=== PATIENT | male | born 1955 | race Caucasian/White ===

== ENCOUNTER → 2019-11-09 06:59 | Outpatient (CLI) | payer BC, SELFPAY ==
--- NOTE | 2019-11-09 07:15 | MRI_ITS ---
STUDY: MRI BRAIN WITH AND WITHOUT CONTRAST REASON FOR EXAM: Male, 63 years old. ms TECHNIQUE: Standardized multiplanar fat and water weighted pulse sequences were obtained. IV Dotarem 17ml was administered for the contrast portion of the examination. COMPARISON: 03/20/2015 FINDINGS: Normal size of the ventricles and extra-axial spaces for the patient''s age. There is no change in the paravertebral or pericallosal the white matter hyperintensities consistent with known demyelinating disease (multiple sclerosis). No contrast-enhancing plaque. There is no evidence for recent intracranial ischemia or other cause of cytotoxic edema on diffusion weighted imaging (DWI). Normal T2* images of the brain without demonstrated susceptibility artifact. There is no demonstrated hemosiderin stain. Normal bilateral basal ganglia. Normal thalami. There is no extra-axial fluid accumulation. Normal flow voids within the major intracranial circulation suggesting patency by spin echo criteria. Normal venous enhancement. There is no enhancing intra-axial or extra-axial abnormality. Normal sella turcica, pituitary gland, infundibular stalk, optic chiasm and hypothalamus. Normal tectal plate and pineal gland. Normal midbrain, divina and medulla. Normal cerebellum. Normal basal cisterns. Normal bilateral temporal bones. Normal bilateral internal auditory canals. No demonstrated orbital abnormality, within the constraints of a routine brain study. Normal visualized paranasal sinuses. Normal calvarium and skull base. Normal visualized soft tissue structures. Normal visualized upper cervical spine. MRI/Brain W/WO Contrast IMPRESSION: No change in known multiple sclerosis. No contrast-enhancing plaque. Electronically Signed: Maksim Cardenas MD at 8:56 EDT Tel , Service support ,
[2019-11-10 09:28] LABS: CREATININE FINGERSTICK 0.97 mg/dL (0.70-1.30); EGFR FINGERSTICK > 60 mL/min (>60)
== END ==
PROVIDERS: PCP Family Medicine; Referring Provider Internal Medicine; Visit Provider Internal Medicine
DX: G35 Multiple sclerosis (principal)
CPT/HCPCS: 70553; A9575

== ENCOUNTER 2019-11-28 19:51 | Emergency (ER) | payer BC, SELFPAY ==
[2019-11-28 19:52] VITALS: BP 140/87; PULSE 74; RESP 16; TEMP 36.6; O2SAT 97; BMI 27.8
--- NOTE | 2019-11-28 20:23 | ED.VIS.GEN ---
History of Present Illness Chief Complaint: Cellulitis Narrative: Patient is a 64-year-old male who presents with redness on his left foot. He had some discomfort and felt like there was a rock in his shoe. He had some discomfort and mild pain on bearing weight. He noticed a small bump. He then today noticed a red line going up his foot. No systemic symptoms. No fevers or vomiting. He is not diabetic. Past Medical History - Allergies and Home Meds Allergies/Adverse Reactions: Allergies Penicillins Allergy (Verified 11/28/19 19:54) PT UNSURE OF REACTION poison azul extract Allergy (Verified 11/28/19 19:54) Rash Primary Care Physician: Hunter Flood MD [Primary Care Provider] - Past Medical History: - - Multiple sclerosis Smoking Status: Former smoker Review of Systems All systems negative except as indicated General: Denies: Fever Cardiovascular: Denies: Chest pain Respiratory: Denies: Dyspnea Gastrointestinal: Denies: Vomiting, Diarrhea Skin: Denies: Rash Neurological: Denies: Headache Physical Exam Vital Signs/Narrative: Vital Signs Temp Pulse Resp BP Pulse Ox 11/28/19 19:52 97.8 F 74 16 140/87 H 97 Inital Vital Signs reviewed: Yes General: Well nourished Head: Normocephalic Eyes: EOMI ENT: Moist mucous membranes Neck: Supple Cardiovascular: Regular rate Respiratory: No distress Skin: - - Patient has a small tender nodule with a tiny pustule on the left lateral foot. There is a tiny central black dot which could potentially be a foreign body. Diagnostic/Tx/Re-eval - Medical Decision Making I did perform [id number] soft tissue ultrasound. No foreign body was visualized. Patient was anesthetized with 1/2 cc of 1% lidocaine without epinephrine. The tiny pustule was incised and drained with an 18-gauge needle. Small amount of purulent material was expressed. No foreign body. Patient will be placed on Keflex and Bactrim. He understands to return for new or worsening symptoms. Patient was discharged. ED Disposition - Plan for ED Patient: Disposition: Home or Assisted Living Diagnosis: Cellulitis and abscess of foot Instructions: ED Abscess Incision And Drainage, ED Cellulitis Prescriptions: Smz/Tmp Ds [Bactrim Ds] 1 tab PO BID #20 tab Prescription Printed Cephalexin [Keflex] 500 mg PO Q6 #40 cap Prescription Printed Referrals: Hunter Flood MD [Primary Care Provider] -
== END 2019-11-28 20:34 | disposition home or self-care (01) ==
LOC: ED 20:28
PROVIDERS: Emergency Provider Emergency Medicine; PCP Family Medicine
DX: L03.116 Cellulitis of left lower limb (principal); L02.612 Cutaneous abscess of left foot; G35 Multiple sclerosis; Z87.891 Personal history of nicotine dependence
CPT/HCPCS: 99282

== ENCOUNTER 2020-06-22 15:06 | Outpatient (RCR) | payer BC, SELFPAY ==
[2020-06-22] MEDS: COVID-19 VACC, MRNA(PFIZER)/PF 30 MCG/0.3 ML SYRINGE IM (08:24)
[2020-07-13] MEDS: COVID-19 VACC, MRNA(PFIZER)/PF 30 MCG/0.3 ML SYRINGE IM (07:59)
== END 2020-06-22 23:59 ==
LOC: IMMUN 15:06
PROVIDERS: PCP Family Medicine; Visit Provider Family Medicine
DX: Z23 Encounter for immunization (principal)
CPT/HCPCS: 0001A; 0002A; 91300

== ENCOUNTER → 2023-09-26 | Outpatient (CLI) | payer MEDICARE, SELFPAY ==
--- NOTE | 2023-09-26 11:07 | MRI_ITS ---
EXAM: MR HEAD WITHOUT AND WITH INTRAVENOUS CONTRAST CLINICAL INDICATION: F/U MS, NO NEW CONCERNS TECHNIQUE: Multiplanar and multisequence MR images of the brain were obtained without and with intravenous contrast. CONTRAST: IV 17CC CLARISCAN COMPARISON: MR Head dated 11/09/2019 FINDINGS: BRAIN AND EXTRA-AXIAL SPACES: Stable white matter lesions noted within both cerebral hemispheres located predominantly along the periventricular region and subcortical white matter. No abnormal contrast enhancement. No acute ischemia. Posterior fossa is normal. Basilar cisterns are patent. Ventricles are normal in size and configuration. SELLA: Normal. Normal sella turcica, pituitary gland, infundibular stalk, optic chiasm and hypothalamus. AUDITORY SYSTEM: Normal. The internal auditory canals are patent. BONES/JOINTS: Intact calvarium. SINUSES: Unremarkable as visualized. Clear. MASTOID AIR CELLS: Unremarkable as visualized. Clear. ORBITS: Unremarkable as visualized. Both globes, extraocular muscles, optic nerves and retrobulbar fat appear unremarkable. VASCULATURE: Unremarkable as visualized. Normal flow voids in the major intracranial circulation. MRI/Brain W/WO Contrast IMPRESSION: Stable white matter lesions related to patient''s known multiple sclerosis. No new lesions identified. No abnormal contrast enhancement. Electronically Signed: Danny Jose MD at 15:56 EDT ,
[2023-09-26 11:42] LABS: CREATININE FINGERSTICK 1.2 mg/dL (0.70-1.30); EGFR FINGERSTICK > 60.0000 mL/min (>60)
== END | disposition home or self-care (01) ==
PROVIDERS: PCP Family Medicine; Referring Provider Internal Medicine; Visit Provider Internal Medicine
DX: G35 Multiple sclerosis (principal)
CPT/HCPCS: 70553; A9575

== ENCOUNTER 2024-10-08 19:22 | Emergency (ER) | payer MEDICARE, SELFPAY ==
[2024-10-08 19:23] VITALS: BP 159/83; PULSE 85; RESP 16; TEMP 36.8; O2SAT 98; BMI 29.2
[2024-10-08] MEDS: Tetracaine 0.5% Ophthalmic Bottle 1 DRP LEFT EYE (19:49)
[2024-10-08 20:23] VITALS: BP 137/76; PULSE 77; RESP 14; TEMP 36.6; O2SAT 95
== END 2024-10-08 20:31 | disposition home or self-care (01) ==
PROVIDERS: Emergency Provider Emergency Medicine; PCP Family Medicine; Visit Provider Emergency Medicine
DX: H33.22 Serous retinal detachment, left eye (principal); Z87.891 Personal history of nicotine dependence
CPT/HCPCS: 99283